=== PATIENT | male | born 1995 | race Caucasian/White ===

== ENCOUNTER 2017-09-14 14:10 | Outpatient (CLI) | payer OTHER | END 2017-09-14 15:50 | disposition home or self-care (01) | LOC: DCC 14:10 | DX: N28.9 Disorder of kidney and ureter, unspecified (principal); I10 Essential (primary) hypertension; F12.10 Cannabis abuse, uncomplicated; F19.11 Other psychoactive substance abuse, in remission | CPT/HCPCS: G0463 ==